=== PATIENT | female | born 1935 | race Caucasian/White ===

== ENCOUNTER 2018-07-27 21:43 | Emergency (ER) | payer MEDICARE, OTHER ==
[~2018-07-27] VITALS: Ht 154.9 cm; Wt 70.0 kg
[~2018-07-27 21:43] MED LIST: ASPI-676; BENA5TAB PO; BISA5TAB6 PO; CIPR5DRO OP; DOCU-144; FURO20TA3 PO; GENT5DRO OP; GLIM2TAB47 PO; HYDR-1666 PO; IBUP-1542 PO; MELO15TA30 PO; METF-849 PO; NEURONTIN; POTA8TAB2
[2018-07-27 21:50] VITALS: Ht 154.9 cm; Wt 70.0 kg
[2018-07-27] MEDS ORDERED: SOD CHLORIDE 0.9% 500 ML IV STA (21:50)
[2018-07-27] MEDS ORDERED: CEFTRIAXONE 1 GM/50 ML (PMX) 50 ML IVPB ONE (23:30)
[2018-07-27] MEDS ORDERED: CEPH-443 PO (23:59)
--- NOTE | 2018-07-28 00:18 | ERD ---
ER Documentation Chief Complaint Chief Complaint bib ra for weakness all day, mild headache, and high blood sugar HPI 82-year-old female with a history of diabetes, hypertension, "arrhythmia", and "heart problem" brought in by ambulance for generalized weakness at home with low blood pressure. Patient denies any associated chest pain, shortness of breath, headache, vision disturbance, focal weakness or numbness. No abdominal pain or dysuria. No hematochezia or melena. ROS All systems reviewed and are negative except as per history of present illness. Medications Home Meds Active Scripts Cephalexin* (Keflex*) 500 Mg Capsule, 500 MG PO BID for 6 Days, CAP Prov:REHANA ARCEO MD 07/27/18 Reported Medications Hydrocodone Bit/Acetaminophen (Vicodin 5/500 Tablet) 1 Tab Tablet, 1 TAB PO [id number] PRN 08/28/11 Gentamicin-Prednisolone Acet (Pred-G Ophth) 5 Ml Drops.susp, 5 ML OP DAILY, #1 DROP 08/28/11 Ciprofloxacin Hcl (Ciloxan) 5 Ml Drops, 5 ML OP DAILY, #1 DROP 08/28/11 Ibuprofen* (Ibuprofen*) 600 Mg Tablet, 600 MG PO Q6 PRN 08/28/11 Furosemide* (Furosemide*) 20 Mg Tablet, 20 MG PO DAILY 08/28/11 Bisacodyl* (Bisacodyl*) 5 Mg Tablet.dr, 5 MG PO DAILY 08/28/11 Benazepril Hcl* (Lotensin*) 5 Mg Tablet, 5 MG PO DAILY 08/28/11 Meloxicam* (Mobic*) 15 Mg Tablet, 15 MG PO DAILY 08/28/11 Glimepiride* (Amaryl*) 2 Mg Tablet, 2 MG PO DAILY 07/09/10 Aspirin (Cora Child) 81 Mg Chew, DAILY 07/09/10 Potassium Chloride* (Klor-Con*) 8 Meq Tablet.sa 07/09/10 Docusate Sodium* (Colace*) 100 Mg Capsule 07/09/10 Metformin* (Glucophage*) 500 Mg Tab, PO DAILY 07/01/10 Neurontin 02/16/10 Allergies Allergies: Coded Allergies: No Known Allergy (Unverified , 08/28/11) PMhx/Soc History of Surgery: Yes (APPENDECTOMY,EYE) Anesthesia Reaction: No Hx Neurological Disorder: No Hx Respiratory Disorders: No Hx Cardiac Disorders: Yes (Aortic stenosis) Hx Psychiatric Problems: No Hx Miscellaneous Medical Probl: Yes (DM,HTN) Hx Alcohol Use: No Hx Substance Use: No Hx Tobacco Use: No Smoking Status: Never smoker FmHx Family History: No diabetes Physical Exam Vitals Vital Signs Date Temp Pulse Resp B/P (MAP) Pulse Ox O2 O2 Flow FiO2 Time Delivery Rate 07/27/18 85 16 152/63 100 Room Air 23:33 (92) 07/27/18 87 16 110/57 98 Room Air 22:09 (74) 07/27/18 98.8 88 19 120/57 99 21:50 (78) Physical Exam Const: No acute distress Head: Atraumatic Eyes: Normal Conjunctiva ENT: Normal External Ears, Nose and Mouth. Neck: Full range of motion. No meningismus. Resp: Clear to auscultation bilaterally Cardio: Regular rate and rhythm, high-pitched loud systolic murmur. 2+ distal pulses in all 4 extremities Abd: Soft, non tender, non distended. Normal bowel sounds Skin: No petechiae or rashes Back: No midline or flank tenderness Ext: No cyanosis, or edema Neur: Awake and alert, oriented x3, cranial nerves intact, strength and sensations intact in all 4 extremities Psych: Normal Mood and Affect Result Diagram: 07/27/18215707/27/182157 Results 24 hrs Laboratory Tests Test 07/27/18 21:58 07/27/18 22:40 White Blood Count 9.2 10^3/ul Red Blood Count 3.81 10^6/ul Hemoglobin 10.5 g/dl Hematocrit 34.2 % Mean Corpuscular Volume 89.8 fl Mean Corpuscular Hemoglobin 27.6 pg Mean Corpuscular Hemoglobin Concent 30.7 g/dl Red Cell Distribution Width 14.6 % Platelet Count 345 10^3/UL Mean Platelet Volume 9.5 fl Immature Granulocytes % 0.300 % Neutrophils % 59.2 % Lymphocytes % 29.8 % Monocytes % 6.7 % Eosinophils % 3.6 % Basophils % 0.4 % Nucleated Red Blood Cells % 0.0 /100WBC Immature Granulocytes # 0.030 10^3/ul Neutrophils # 5.4 10^3/ul Lymphocytes # 2.7 10^3/ul Monocytes # 0.6 10^3/ul Eosinophils # 0.3 10^3/ul Basophils # 0.0 10^3/ul Nucleated Red Blood Cells # 0.0 10^3/ul Sodium Level 141 mmol/L Potassium Level 4.3 mmol/L Chloride Level 106 mmol/L Carbon Dioxide Level 24 mmol/L Anion Gap 11 Blood Urea Nitrogen 49 mg/dl Creatinine 2.02 mg/dl Est Glomerular Filtrat Rate mL/min mL/min Glucose Level 178 mg/dl Calcium Level 9.2 mg/dl Troponin I 0.016 ng/ml Urine Color YELLOW Urine Clarity SLIGHTLY CLOUDY Urine pH 5.0 Urine Specific [place] 1.017 Urine Ketones NEGATIVE mg/dL Urine Nitrite POSITIVE mg/dL Urine Bilirubin NEGATIVE mg/dL Urine Urobilinogen NEGATIVE mg/dL Urine Leukocyte Esterase 2+ Annabel/ul Urine Microscopic RBC 4 /HPF Urine Microscopic WBC 32 /HPF Urine Squamous Epithelial Cells FEW /HPF Urine Bacteria MANY /HPF Urine Hemoglobin 2+ mg/dL Urine Glucose NEGATIVE mg/dL Urine Total Protein NEGATIVE mg/dl Current Medications Medications Dose Sig/Tree Start Time Status Last (Trade) Ordered Route PRN Stop Time Admin Dose Reason Admin Sodium 500 ml @ Q1H STAT 07/27/18 DC 07/27/18 Chloride 500 mls/hr IV 21:50 07/27/18 22:11 22:49 Ceftriaxone 50 ml @ ONCE ONCE 07/27/18 DC 07/27/18 Sodium 100 mls/hr IVPB 23:30 07/27/18 23:30 23:59 Procedures/MDM EMERGENT LABS AND DIAGNOSTIC STUDIES: Lab Results above were reviewed and interpreted by me. CBC: Mild anemia, no evidence of severe infection BMP shows elevated BUN and creatinine, at patient's baseline, consistent with chronic renal insufficiency. No evidence of acidosis Or electrolyte abnormality. Hyperglycemic Troponin within normal limits, not indicative of cardiac ischemia UA: Consistent with UTI 12-lead EKG was interpreted by Dante Arceo MD: Normal sinus rhythm LVH with repolarization abnormalities No acute ST or T wave changes suggestive of acute ischemia or STEMI. Radiology Results as interpreted by Radiology below were reviewed by Ceci Arceo MD: Chest x-ray shows no acute abnormalities Initial Nursing notes reviewed. Previous Medical Records requested via the Electronic Health Record. EMERGENCY DEPARTMENT COURSE / MEDICAL DECISION MAKING: Patient is presenting with generalized weakness and transient hypotension at home. Here her blood pressure is normal and she is afebrile with unremarkable vital signs. Her labs are consistent with CKD and show evidence of UTI. I have low suspicion for acute coronary syndrome. Patient was given a small fluid bolus and ceftriaxone IV. She feels much better and is very eager to go home. I discussed with family that if the patient is having any worsening symptoms, to bring her back to the hospital immediately. They are agreeable with this plan. Patient's blood pressure was elevated (>120/80) but appears stable without evidence of hypertensive emergency or urgency. The patient was counseled about the risks of hypertension and urged to pursue outpatient monitoring and therapy within a week with their primary care physician. Departure Diagnosis: Primary Impression: Acute weakness Additional Impression: UTI (urinary tract infection) Urinary tract infection type: site unspecified Hematuria presence: without hematuria Qualified Codes: N39.0 - Urinary tract infection, site not specified Condition: Stable Patient Instructions: Understanding Urinary Tract Infections (UTIs) Additional Instructions: Return to the ER for any worsening symptoms. Follow up with your primary care doctor in 2-3 days. REHANA ARCEO MD July 28, 2018 00:18
[2018-07-28 00:30] VITALS: BP 132/78; PULSE 79; RESP 16
== END 2018-07-28 00:32 | disposition home or self-care (01) ==
LOC: E/R 21:43
DX: N39.0 Urinary tract infection, site not specified (principal); I10 Essential (primary) hypertension; E11.9 Type 2 diabetes mellitus without complications; Z79.82 Long term (current) use of aspirin; Z79.84 Long term (current) use of oral hypoglycemic drugs
CPT/HCPCS: 36415; 71045; 80048; 81001; 84484; 85025; 96374; 99285; J0696; J7040; 93005